=== PATIENT | male | born 1945 | race Hispanic/Latino ===

== ENCOUNTER 2022-06-03 07:42 | Inpatient (IN) | payer MEDICARE, OTHER ==
[~2022-06-03] VITALS: Ht 172.7 cm; Wt 70.3 kg
[2022-06-03] MEDS ORDERED: ASPIRIN 81 MG CHEW TAB PO ONE ×2 (08:00→11:30)
[2022-06-03] MEDS ORDERED: ENOXAPARIN INJ 80 MG/0.8 ML SYR SC SCH (08:00)
[2022-06-03] MEDS ORDERED: DIGOXIN INJ 0.25 MG/ML 2 ML AMP IV ONE ×2 (08:00→10:30)
[2022-06-03] MEDS ORDERED: SODIUM CHLORIDE FLUSH 10 ML SYR IV PRN (08:00)
[2022-06-03] MEDS ORDERED: ASPIRIN 325 MG TAB ONE (08:31)
[2022-06-03 08:36] LABS: BASOPHILS % 0.6 % (0.0-1.0); EOSINOPHILS # (AUTO) 0.1 (0.0-0.4); EOSINOPHILS % 1.7 % (0.0-6.0); HEMATOCRIT 30.3 % (38.2-49.6); HEMOGLOBIN 9.8 g/dL (14.0-18.0); LYMPHOCYTES # (AUTO) 0.9 (1.0-3.2); LYMPHOCYTES % 18.6 % (18.0-39.1); MEAN CORPUSCULAR HEMOGLOBIN 31.6 pg (28-32); MEAN CORPUSCULAR HGB CONC 32.3 g/dL (31-35); MEAN CORPUSCULAR VOLUME 97.7 fL (81-99); MONOCYTES # (AUTO) 0.5 (0.2-0.8); MONOCYTES % 9.7 % (4.4-11.3); NEUTROPHILS # (AUTO) 3.3 (2.1-6.9); PLATELET COUNT 127 x10e3/uL (140-360); RED CELL DISTRIBUTION WIDTH 15.2 % (11.7-14.4)
[2022-06-03] MEDS ORDERED: ASPIRIN 325 MG TAB PO ONE (08:45)
[2022-06-03 08:46] LABS: INR 3.92; PARTIAL THROMBOPLASTIN TIME 46.3 seconds (23.8-35.5); PROTHROMBIN TIME 38.6 seconds (11.9-14.5)
[2022-06-03 08:55] LABS: ALBUMIN 3.4 g/dL (3.5-5.0); ALBUMIN/GLOBULIN RATIO 0.8 (0.8-2.0); CALCIUM 8.9 mg/dL (8.4-10.2); CREATININE, SERUM 3.73 mg/dL (0.72-1.25)
[2022-06-03] MEDS ORDERED: ONDANSETRON HCL INJ 2MG/ML 2ML 2 MG/ML VIAL IV PRN (11:30)
[2022-06-03] MEDS ORDERED: SODIUM CHLORIDE FLUSH 10 ML SYR INJ PRN (11:30)
[2022-06-03 15:33] LABS: CREATINE KINASE MB 1.3 ng/mL (0-5.0)
[2022-06-03] MEDS ORDERED: ESIDRIX25 MG PO (15:48)
[2022-06-03] MEDS ORDERED: LIPITOR20 MG PO (15:48)
[2022-06-03] MEDS ORDERED: WARFARIN SODIUM5 MG PO (15:48)
[2022-06-03] MEDS ORDERED: AMLODIPINE BESY10 MG PO (15:48)
[2022-06-03] MEDS ORDERED: METFORMIN HCL500 MG PO (15:48)
[2022-06-03 16:41] VITALS: BP 145/106
[2022-06-03] MEDS: AMLODIPINE BESYLATE 10 MG TAB PO SCH (17:57)
[2022-06-03 20:00] VITALS: BP 145/106
[2022-06-03 20:37] VITALS: BP 118/84
[2022-06-03] MEDS: ATORVASTATIN 40 MG TAB PO SCH (20:56)
[2022-06-04] VITALS (7 sets, daily range): BP systolic 93–142; BP diastolic 67–92
[2022-06-04 00:28] LABS: CREATINE KINASE MB 1.1 ng/mL (0-5.0)
[2022-06-04 06:12] LABS: BASOPHILS % 0.4 % (0.0-1.0); EOSINOPHILS # (AUTO) 0.2 (0.0-0.4); EOSINOPHILS % 3.3 % (0.0-6.0); LYMPHOCYTES # (AUTO) 0.7 (1.0-3.2); LYMPHOCYTES % 15.3 % (18.0-39.1); MEAN CORPUSCULAR HEMOGLOBIN 31.3 pg (28-32); MEAN CORPUSCULAR VOLUME 100.7 fL (81-99); MONOCYTES # (AUTO) 0.5 (0.2-0.8); MONOCYTES % 10.4 % (4.4-11.3); NEUTROPHILS # (AUTO) 3.2 (2.1-6.9); NEUTROPHILS % 70.2 % (38.7-80.0); PLATELET COUNT 108 x10e3/uL (140-360); RED BLOOD COUNT 2.88 x10e6/uL (4.3-5.7); RED CELL DISTRIBUTION WIDTH 14.8 % (11.7-14.4)
[2022-06-04 06:55] LABS: ALBUMIN 2.9 g/dL (3.5-5.0); ALBUMIN/GLOBULIN RATIO 0.8 (0.8-2.0); ANION GAP 13.6 mmol/L (8-16); CALCIUM 8.4 mg/dL (8.4-10.2); CREATININE, SERUM 3.67 mg/dL (0.72-1.25); POTASSIUM 3.6 mmol/L (3.5-5.1)
[2022-06-04 07:45] LABS: CREATINE KINASE MB 1.1 ng/mL (0-5.0)
[2022-06-04] MEDS ORDERED: HYDROCHLOROTHIAZIDE 25 MG TAB PO SCH (09:00)
[2022-06-04] MEDS: AMLODIPINE BESYLATE 10 MG TAB PO SCH (09:39)
[2022-06-04] MEDS: ASPIRIN 81 MG ENTERIC COATED PO SCH (09:39)
[2022-06-04] MEDS: METFORMIN HCL 500 MG TAB PO SCH ×2 (09:39→17:15)
[2022-06-04 14:08] LABS: CLARITY,URINE CLEAR (CLEAR); COLOR,URINE YELLOW (YELLOW); LEUKOCYTE ESTERASE ,URINE NEGATIVE (NEGATIVE); NITRITE,URINE NEGATIVE (NEGATIVE); PROTEIN,URINE DIPSTICK NEGATIVE (NEGATIVE)
[2022-06-04 14:09] LABS: KETONES,URINE NEGATIVE (NEGATIVE); URINE UROBILINOGEN 0.2 mg/dL (0.2 - 1)
[2022-06-04 14:14] LABS: BACTERIA,URINE FEW /HPF; EPITHELIAL CELLS,URINE MANY /LPF; RBC,URINE 21-50 /HPF (0-5)
[2022-06-04 15:34] LABS: CREATININE,URINE RANDOM 70.86 mg/dL (63-166)
[2022-06-04] MEDS ORDERED: LACTATED RINGER'S 1,000 ML INJ ONE (16:45)
[2022-06-04] MEDS: METOPROLOL TARTRATE 25 MG TAB PO SCH (17:00)
[2022-06-04] MEDS: ATORVASTATIN 40 MG TAB PO SCH (21:13)
[2022-06-04 22:51] LABS: % IRON SATURATION 17 % (15-50); IRON 43 ug/dL (65-175); TOTAL IRON BINDING CAPACITY 258 ug/dL (261-478); TRANSFERRIN 184 mg/dL (174-364)
[2022-06-05] VITALS (7 sets, daily range): BP systolic 101–124; BP diastolic 75–98
[2022-06-05 06:30] LABS: ALBUMIN/GLOBULIN RATIO 0.8 (0.8-2.0); ANION GAP 15.8 mmol/L (8-16); CALCIUM 8.4 mg/dL (8.4-10.2); CREATININE, SERUM 3.73 mg/dL (0.72-1.25); POTASSIUM 3.8 mmol/L (3.5-5.1)
[2022-06-05 06:41] LABS: INR 3.05; PROTHROMBIN TIME 31.9 seconds (11.9-14.5)
[2022-06-05] MEDS ORDERED: SODIUM CHLORIDE 0.9% 100 ML ONE (07:39)
[2022-06-05] MEDS: AMLODIPINE BESYLATE 10 MG TAB PO SCH (08:43)
[2022-06-05] MEDS: METFORMIN HCL 500 MG TAB PO SCH (08:43)
[2022-06-05] MEDS: METOPROLOL TARTRATE 25 MG TAB PO SCH ×2 (08:44→16:29)
[2022-06-05] MEDS: ASPIRIN 81 MG ENTERIC COATED PO SCH (08:44)
[2022-06-05] MEDS: IRON SUCROSE 100 MG in SODIUM CHLORIDE 0.9% 100 ML IV SCH (08:45)
[2022-06-05] MEDS ORDERED: DIATRIZOATE MEGL/DIATRIZOA SOD 30 ML BTL PO ONE (11:02)
[2022-06-05] MEDS ORDERED: ONDANSETRON HCL 4 MG ORAL DISINTEGRATING TAB PO PRN (13:00)
[2022-06-05 14:03] LABS: HEMATOCRIT 30.7 % (38.2-49.6); HEMOGLOBIN 9.9 g/dL (14.0-18.0)
[2022-06-05] MEDS ORDERED: SODIUM CHLORIDE 0.9% 250ML 250 ML IV ONE (15:15)
[2022-06-05] MEDS: SODIUM BICARBONATE 650 MG TAB PO SCH ×2 (16:29→20:39)
[2022-06-05] MEDS: ATORVASTATIN 40 MG TAB PO SCH (20:39)
[2022-06-05] MEDS ORDERED: DILTIAZEM HCL 5 MG/ML 5 ML VIAL IV ONE (22:45)
[2022-06-06 05:55] LABS: BASOPHILS % 0.3 % (0.0-1.0); EOSINOPHILS % 0.5 % (0.0-6.0); HEMATOCRIT 31.9 % (38.2-49.6); HEMOGLOBIN 10.3 g/dL (14.0-18.0); LYMPHOCYTES # (AUTO) 0.7 (1.0-3.2); LYMPHOCYTES % 10.5 % (18.0-39.1); MEAN CORPUSCULAR HEMOGLOBIN 30.3 pg (28-32); MEAN CORPUSCULAR HGB CONC 32.3 g/dL (31-35); MEAN CORPUSCULAR VOLUME 93.8 fL (81-99); MONOCYTES # (AUTO) 0.6 (0.2-0.8); MONOCYTES % 8.5 % (4.4-11.3); NEUTROPHILS # (AUTO) 5.2 (2.1-6.9); NEUTROPHILS % 79.9 % (38.7-80.0); PLATELET COUNT 117 x10e3/uL (140-360); RED CELL DISTRIBUTION WIDTH 16.3 % (11.7-14.4)
[2022-06-06 06:11] LABS: INR 2.34; PROTHROMBIN TIME 26.1 seconds (11.9-14.5)
[2022-06-06 06:26] VITALS: BP 122/93
[2022-06-06 06:41] LABS: ALBUMIN 2.9 g/dL (3.5-5.0); ALBUMIN/GLOBULIN RATIO 0.8 (0.8-2.0); ANION GAP 16.3 mmol/L (8-16); CALCIUM 8.3 mg/dL (8.4-10.2); CREATININE, SERUM 3.65 mg/dL (0.72-1.25); POTASSIUM 4.3 mmol/L (3.5-5.1)
[2022-06-06 08:42] VITALS: BP 130/87
[2022-06-06] MEDS: IRON SUCROSE 100 MG in SODIUM CHLORIDE 0.9% 100 ML IV SCH (09:39)
[2022-06-06] MEDS: AMLODIPINE BESYLATE 10 MG TAB PO SCH (09:39)
[2022-06-06] MEDS: SODIUM BICARBONATE 650 MG TAB PO SCH ×3 (09:39→21:44)
[2022-06-06] MEDS: METOPROLOL TARTRATE 25 MG TAB PO SCH ×2 (09:40→21:44)
[2022-06-06] MEDS: AMIODARONE HCL 200 MG TAB PO SCH ×2 (09:43→16:06)
[2022-06-06] MEDS: ASPIRIN 81 MG ENTERIC COATED PO SCH (09:43)
[2022-06-06 11:46] VITALS: BP 102/73
[2022-06-06 15:48] VITALS: BP 119/82
[2022-06-06] MEDS: SODIUM BICARBONATE 8.4% SYRING 150 ML in DEXTROSE 5% 1,000 ML IV SCH (16:06)
[2022-06-06] MEDS ORDERED: WARFARIN SOD 2 MG TAB PO SCH (17:00)
[2022-06-06 20:00] VITALS: BP 102/77
[2022-06-06] MEDS: ATORVASTATIN 40 MG TAB PO SCH (21:44)
[2022-06-07] VITALS (8 sets, daily range): BP systolic 91–116; BP diastolic 65–80
[2022-06-07] MEDS: METOPROLOL TARTRATE 25 MG TAB PO SCH ×3 (06:18→22:37)
[2022-06-07 06:25] LABS: INR 2.08; PROTHROMBIN TIME 23.9 seconds (11.9-14.5)
[2022-06-07] MEDS: SODIUM BICARBONATE 8.4% SYRING 150 ML in DEXTROSE 5% 1,000 ML IV SCH ×2 (06:34→22:30)
[2022-06-07 06:44] LABS: ALBUMIN 2.7 g/dL (3.5-5.0); ALBUMIN/GLOBULIN RATIO 0.7 (0.8-2.0); ANION GAP 14.6 mmol/L (8-16); CALCIUM 8.4 mg/dL (8.4-10.2); CREATININE, SERUM 3.43 mg/dL (0.72-1.25); POTASSIUM 3.6 mmol/L (3.5-5.1)
[2022-06-07] MEDS: IRON SUCROSE 100 MG in SODIUM CHLORIDE 0.9% 100 ML IV SCH (08:50)
[2022-06-07] MEDS: AMLODIPINE BESYLATE 10 MG TAB PO SCH (08:50)
[2022-06-07] MEDS: ASPIRIN 81 MG ENTERIC COATED PO SCH (08:51)
[2022-06-07] MEDS: SODIUM BICARBONATE 650 MG TAB PO SCH ×3 (08:51→20:38)
[2022-06-07] MEDS: AMIODARONE HCL 200 MG TAB PO SCH ×2 (08:51→16:43)
[2022-06-07] MEDS ORDERED: HYDRALAZINE HCL 20 MG/ML VIAL IV PRN (11:15)
[2022-06-07] MEDS ORDERED: DOCUSATE SODIUM 100 MG CAP PO PRN (11:15)
[2022-06-07] MEDS ORDERED: GUAIFENESIN/DEXTROMETHORPHAN LIQD 5 ML UDC PO PRN (11:15)
[2022-06-07] MEDS ORDERED: MELATONIN 3 MG TAB PO PRN (11:15)
[2022-06-07] MEDS ORDERED: AMIODARONE HCL 200 MG TAB PO ONE (13:00)
[2022-06-07] MEDS: PANTOPRAZOLE SOD 40 MG TABEC PO SCH (16:42)
[2022-06-07] MEDS: ATORVASTATIN 40 MG TAB PO SCH (20:38)
[2022-06-08] VITALS (8 sets, daily range): BP systolic 92–109; BP diastolic 65–96
[2022-06-08] MEDS: METOPROLOL TARTRATE 25 MG TAB PO SCH ×3 (05:40→21:18)
[2022-06-08 07:25] LABS: BASOPHILS % 0.2 % (0.0-1.0); EOSINOPHILS # (AUTO) 0.2 (0.0-0.4); EOSINOPHILS % 1.6 % (0.0-6.0); LYMPHOCYTES % 7.9 % (18.0-39.1); MEAN CORPUSCULAR HEMOGLOBIN 30.5 pg (28-32); MEAN CORPUSCULAR HGB CONC 32.3 g/dL (31-35); MEAN CORPUSCULAR VOLUME 94.5 fL (81-99); MONOCYTES # (AUTO) 1.1 (0.2-0.8); MONOCYTES % 8.5 % (4.4-11.3); NEUTROPHILS # (AUTO) 10.3 (2.1-6.9); NEUTROPHILS % 81.2 % (38.7-80.0); RED BLOOD COUNT 3.28 x10e6/uL (4.3-5.7)
[2022-06-08 07:26] LABS: PLATELET COUNT 100 x10e3/uL (140-360)
[2022-06-08 07:28] LABS: INR 1.99; PROTHROMBIN TIME 23.1 seconds (11.9-14.5)
[2022-06-08 07:55] LABS: ANION GAP 12.7 mmol/L (8-16); CALCIUM 7.6 mg/dL (8.4-10.2); CREATININE, SERUM 3.26 mg/dL (0.72-1.25); POTASSIUM 3.7 mmol/L (3.5-5.1)
[2022-06-08] MEDS: ASPIRIN 81 MG ENTERIC COATED PO SCH (08:00)
[2022-06-08] MEDS: PANTOPRAZOLE SOD 40 MG TABEC PO SCH ×2 (08:00→16:31)
[2022-06-08] MEDS: MULTIVITAMINS/MINERALS TAB PO SCH (08:00)
[2022-06-08] MEDS: AMIODARONE HCL 200 MG TAB PO SCH ×2 (08:00→16:31)
[2022-06-08] MEDS: AMLODIPINE BESYLATE 10 MG TAB PO SCH (08:00)
[2022-06-08] MEDS: SODIUM BICARBONATE 650 MG TAB PO SCH (08:01)
[2022-06-08] MEDS: IRON SUCROSE 100 MG in SODIUM CHLORIDE 0.9% 100 ML IV SCH (09:49)
[2022-06-08] MEDS: SODIUM BICARBONATE 8.4% SYRING 150 ML in DEXTROSE 5% 1,000 ML IV SCH (16:31)
[2022-06-08] MEDS: ATORVASTATIN 40 MG TAB PO SCH (21:17)
[2022-06-09] VITALS (9 sets, daily range): BP systolic 94–102; BP diastolic 63–77
[2022-06-09] MEDS: METOPROLOL TARTRATE 25 MG TAB PO SCH ×3 (05:53→21:03)
[2022-06-09 06:15] LABS: BASOPHILS % 0.2 % (0.0-1.0); EOSINOPHILS # (AUTO) 0.2 (0.0-0.4); HEMATOCRIT 27.3 % (38.2-49.6); HEMOGLOBIN 9.2 g/dL (14.0-18.0); LYMPHOCYTES # (AUTO) 1.2 (1.0-3.2); LYMPHOCYTES % 11.2 % (18.0-39.1); MEAN CORPUSCULAR HEMOGLOBIN 31.1 pg (28-32); MEAN CORPUSCULAR HGB CONC 33.7 g/dL (31-35); MEAN CORPUSCULAR VOLUME 92.2 fL (81-99); MONOCYTES # (AUTO) 0.7 (0.2-0.8); MONOCYTES % 6.7 % (4.4-11.3); NEUTROPHILS # (AUTO) 8.6 (2.1-6.9); NEUTROPHILS % 79.3 % (38.7-80.0); PLATELET COUNT 102 x10e3/uL (140-360); RED BLOOD COUNT 2.96 x10e6/uL (4.3-5.7); RED CELL DISTRIBUTION WIDTH 15.4 % (11.7-14.4)
[2022-06-09 06:55] LABS: ANION GAP 15.2 mmol/L (8-16); CALCIUM 7.8 mg/dL (8.4-10.2); CREATININE, SERUM 3.7 mg/dL (0.72-1.25); POTASSIUM 3.2 mmol/L (3.5-5.1)
[2022-06-09] MEDS ORDERED: SODIUM CHLORIDE 0.9% 100 ML ONE (07:28)
[2022-06-09] MEDS: MULTIVITAMINS/MINERALS TAB PO SCH (08:10)
[2022-06-09] MEDS: PANTOPRAZOLE SOD 40 MG TABEC PO SCH ×2 (08:11→17:39)
[2022-06-09] MEDS: AMIODARONE HCL 200 MG TAB PO SCH ×2 (08:11→17:39)
[2022-06-09] MEDS: ASPIRIN 81 MG ENTERIC COATED PO SCH (08:11)
[2022-06-09] MEDS: AMLODIPINE BESYLATE 10 MG TAB PO SCH (08:14)
[2022-06-09] MEDS: SODIUM BICARBONATE 8.4% SYRING 150 ML in DEXTROSE 5% 1,000 ML IV SCH ×2 (08:14→22:41)
[2022-06-09] MEDS: IRON SUCROSE 100 MG in SODIUM CHLORIDE 0.9% 100 ML IV SCH (09:00)
[2022-06-09] MEDS ORDERED: POTASSIUM CHLORIDE 20 MEQ TAB CR PO ONE ×2 (10:00→13:00)
[2022-06-09] MEDS: ATORVASTATIN 40 MG TAB PO SCH (20:57)
[2022-06-10] VITALS (9 sets, daily range): BP systolic 94–107; BP diastolic 68–79
[2022-06-10] MEDS: METOPROLOL TARTRATE 25 MG TAB PO SCH ×3 (05:38→20:25)
[2022-06-10 07:20] LABS: INR 1.59; PROTHROMBIN TIME 19.5 seconds (11.9-14.5)
[2022-06-10 07:29] LABS: ANION GAP 13.4 mmol/L (8-16); CALCIUM 7.9 mg/dL (8.4-10.2); CREATININE, SERUM 3.47 mg/dL (0.72-1.25); POTASSIUM 3.4 mmol/L (3.5-5.1)
[2022-06-10] MEDS: PANTOPRAZOLE SOD 40 MG TABEC PO SCH ×2 (08:32→16:05)
[2022-06-10] MEDS: ASPIRIN 81 MG ENTERIC COATED PO SCH (08:32)
[2022-06-10] MEDS: AMIODARONE HCL 200 MG TAB PO SCH ×2 (08:33→16:04)
[2022-06-10] MEDS: IRON-VITAMIN-MINERAL CAPSULE PO SCH ×2 (08:33→16:04)
[2022-06-10] MEDS: MULTIVITAMINS/MINERALS TAB PO SCH (08:41)
[2022-06-10] MEDS: AMLODIPINE BESYLATE 10 MG TAB PO SCH (09:00)
[2022-06-10] MEDS: ACETAMINOPHEN 325 MG TAB PO PRN ×2 (10:24→10:38)
[2022-06-10] MEDS ORDERED: POTASSIUM CHLORIDE 20 MEQ TAB CR PO ONE (14:00)
[2022-06-10] MEDS: SODIUM BICARBONATE 8.4% SYRING 150 ML in DEXTROSE 5% 1,000 ML IV SCH (17:06)
[2022-06-10] MEDS: ATORVASTATIN 40 MG TAB PO SCH (20:28)
[2022-06-11] VITALS (9 sets, daily range): BP systolic 93–105; BP diastolic 70–79
[2022-06-11] MEDS: METOPROLOL TARTRATE 25 MG TAB PO SCH ×3 (05:09→20:26)
[2022-06-11] MEDS: AMIODARONE HCL 200 MG TAB PO SCH ×2 (08:38→16:33)
[2022-06-11] MEDS: PANTOPRAZOLE SOD 40 MG TABEC PO SCH ×2 (08:38→16:33)
[2022-06-11] MEDS: ASPIRIN 81 MG ENTERIC COATED PO SCH (08:38)
[2022-06-11] MEDS: MULTIVITAMINS/MINERALS TAB PO SCH (08:38)
[2022-06-11] MEDS: IRON-VITAMIN-MINERAL CAPSULE PO SCH ×2 (08:39→16:35)
[2022-06-11] MEDS: SODIUM BICARBONATE 8.4% SYRING 150 ML in DEXTROSE 5% 1,000 ML IV SCH (09:32)
[2022-06-11] MEDS: ATORVASTATIN 40 MG TAB PO SCH (20:26)
[2022-06-12] VITALS (7 sets, daily range): BP systolic 90–111; BP diastolic 55–77
[2022-06-12] MEDS: SODIUM BICARBONATE 8.4% SYRING 150 ML in DEXTROSE 5% 1,000 ML IV SCH ×2 (04:14→16:44)
[2022-06-12] MEDS: METOPROLOL TARTRATE 25 MG TAB PO SCH ×3 (05:06→21:54)
[2022-06-12 06:25] LABS: INR 1.36; PROTHROMBIN TIME 17.3 seconds (11.9-14.5)
[2022-06-12 06:26] LABS: PARTIAL THROMBOPLASTIN TIME 54.7 seconds (23.8-35.5)
[2022-06-12] MEDS: AMIODARONE HCL 200 MG TAB PO SCH ×2 (10:16→16:44)
[2022-06-12] MEDS: IRON-VITAMIN-MINERAL CAPSULE PO SCH ×2 (10:16→16:44)
[2022-06-12] MEDS: PANTOPRAZOLE SOD 40 MG TABEC PO SCH ×2 (10:16→16:44)
[2022-06-12] MEDS: ASPIRIN 81 MG ENTERIC COATED PO SCH (10:16)
[2022-06-12] MEDS: MULTIVITAMINS/MINERALS TAB PO SCH (10:16)
[2022-06-12] MEDS: ATORVASTATIN 40 MG TAB PO SCH (21:53)
[2022-06-13] VITALS (7 sets, daily range): BP systolic 99–123; BP diastolic 74–91
[2022-06-13] MEDS: METOPROLOL TARTRATE 25 MG TAB PO SCH ×3 (05:46→21:22)
[2022-06-13] MEDS: MULTIVITAMINS/MINERALS TAB PO SCH (10:06)
[2022-06-13] MEDS: PANTOPRAZOLE SOD 40 MG TABEC PO SCH ×2 (10:06→18:05)
[2022-06-13] MEDS: IRON-VITAMIN-MINERAL CAPSULE PO SCH ×2 (10:06→18:05)
[2022-06-13] MEDS: SODIUM BICARBONATE 8.4% SYRING 150 ML in DEXTROSE 5% 1,000 ML IV SCH (10:07)
[2022-06-13] MEDS: AMIODARONE HCL 200 MG TAB PO SCH ×2 (10:07→18:05)
[2022-06-13] MEDS: ASPIRIN 81 MG ENTERIC COATED PO SCH (10:07)
[2022-06-13 10:26] LABS: ALBUMIN 2.4 g/dL (3.5-5.0); ALBUMIN/GLOBULIN RATIO 0.5 (0.8-2.0); CALCIUM 8.4 mg/dL (8.4-10.2); CREATININE, SERUM 2.91 mg/dL (0.72-1.25)
[2022-06-13] MEDS ORDERED: LIDOCAINE HCL 2% LOCAL INJ 5 ML SDV VIAL INJ ONE (12:14)
[2022-06-13] MEDS ORDERED: PROPOFOL IV EMULSION 10 MG/ML 20 ML VIAL ONE (12:14)
[2022-06-13] MEDS ORDERED: FENTANYL CITRATE/PF 100MCG/2 ML INJ ONE (13:21)
[2022-06-13] MEDS: ATORVASTATIN 40 MG TAB PO SCH (21:22)
[2022-06-14] MEDS: SODIUM BICARBONATE 8.4% SYRING 150 ML in DEXTROSE 5% 1,000 ML IV SCH (03:29)
[2022-06-14 04:00] VITALS: BP 113/88
[2022-06-14] MEDS: METOPROLOL TARTRATE 25 MG TAB PO SCH (06:01)
[2022-06-14 06:18] LABS: BASOPHILS # (AUTO) 0.1 (0.0-0.1); BASOPHILS % 0.8 % (0.0-1.0); EOSINOPHILS # (AUTO) 0.1 (0.0-0.4); EOSINOPHILS % 1.8 % (0.0-6.0); HEMATOCRIT 34.3 % (38.2-49.6); HEMOGLOBIN 11.1 g/dL (14.0-18.0); LYMPHOCYTES # (AUTO) 1.2 (1.0-3.2); LYMPHOCYTES % 14.6 % (18.0-39.1); MEAN CORPUSCULAR HEMOGLOBIN 31.3 pg (28-32); MEAN CORPUSCULAR HGB CONC 32.4 g/dL (31-35); MEAN CORPUSCULAR VOLUME 96.6 fL (81-99); MONOCYTES # (AUTO) 0.6 (0.2-0.8); MONOCYTES % 7.6 % (4.4-11.3); NEUTROPHILS # (AUTO) 5.9 (2.1-6.9); NEUTROPHILS % 74.8 % (38.7-80.0); PLATELET COUNT 186 x10e3/uL (140-360); RED BLOOD COUNT 3.55 x10e6/uL (4.3-5.7); RED CELL DISTRIBUTION WIDTH 14.6 % (11.7-14.4)
[2022-06-14 06:42] LABS: ANION GAP 15.5 mmol/L (8-16); CALCIUM 8.7 mg/dL (8.4-10.2); CREATININE, SERUM 3.01 mg/dL (0.72-1.25); MAGNESIUM 1.7 MG/DL (1.3-2.1); POTASSIUM 3.5 mmol/L (3.5-5.1)
[2022-06-14 08:32] VITALS: BP 114/83
[2022-06-14 08:45] VITALS: BP 114/83
[2022-06-14] MEDS: IRON-VITAMIN-MINERAL CAPSULE PO SCH (08:53)
[2022-06-14] MEDS: AMIODARONE HCL 200 MG TAB PO SCH (08:53)
[2022-06-14] MEDS: MULTIVITAMINS/MINERALS TAB PO SCH (08:53)
[2022-06-14] MEDS: PANTOPRAZOLE SOD 40 MG TABEC PO SCH (08:53)
[2022-06-14] MEDS: ASPIRIN 81 MG ENTERIC COATED PO SCH (08:53)
[2022-06-14 11:54] VITALS: BP 118/83
[2022-06-14] MEDS ORDERED: PROTONIX40 MG/ML PO (12:33)
[2022-06-14] MEDS ORDERED: ASPIRIN EC81 MG PO (12:33)
[2022-06-14] MEDS ORDERED: AMIODARONE HCL200 MG PO (12:33)
[2022-06-14] MEDS ORDERED: FEROCON CAPSUL1 EACH PO (12:33)
[2022-06-14] MEDS ORDERED: TOPROL XL50 MG PO (12:33)
[2022-06-14] MEDS ORDERED: DOCUSATE SODIU100 MG PO (12:34)
== END 2022-06-14 15:35 | disposition home or self-care (01) | DRG 682 ==
LOC: ER 07:48 → ERHOLD 11:29 → MED/SURG2 13:40
PROVIDERS: ADMIT Internal Medicine; ATTEND Internal Medicine
PROC: 0DB78ZX Excision of Stomach, Pylorus, Via Natural or Artificial Opening Endoscopic, Diagnostic (ICD-10-PCS; 2022-06-03)
PROC: 0DB98ZX Excision of Duodenum, Via Natural or Artificial Opening Endoscopic, Diagnostic (ICD-10-PCS; 2022-06-03)
PROC: 30233N1 Transfusion of Nonautologous Red Blood Cells into Peripheral Vein, Percutaneous Approach (ICD-10-PCS; principal; 2022-06-05)
PROC: 0T7B7ZZ Dilation of Bladder, Via Natural or Artificial Opening (ICD-10-PCS; 2022-06-05)
DX: N17.9 Acute kidney failure, unspecified (principal); J96.01 Acute respiratory failure with hypoxia; E87.20 Acidosis, unspecified; N39.0 Urinary tract infection, site not specified; I12.9 Hypertensive chronic kidney disease with stage 1 through stage 4 chronic kidney disease, or unspecified chronic kidney disease; N13.1 Hydronephrosis with ureteral stricture, not elsewhere classified; I48.91 Unspecified atrial fibrillation; I25.2 Old myocardial infarction; I95.9 Hypotension, unspecified; R91.1 Solitary pulmonary nodule; E78.5 Hyperlipidemia, unspecified; I25.10 Atherosclerotic heart disease of native coronary artery without angina pectoris; E11.22 Type 2 diabetes mellitus with diabetic chronic kidney disease; R33.9 Retention of urine, unspecified; N40.1 Benign prostatic hyperplasia with lower urinary tract symptoms; R31.0 Gross hematuria; N32.9 Bladder disorder, unspecified; D72.819 Decreased white blood cell count, unspecified; D63.1 Anemia in chronic kidney disease; D69.6 Thrombocytopenia, unspecified; N28.1 Cyst of kidney, acquired; K29.70 Gastritis, unspecified, without bleeding; K20.90 Esophagitis, unspecified without bleeding; N18.30 Chronic kidney disease, stage 3 unspecified; D50.0 Iron deficiency anemia secondary to blood loss (chronic); I71.21 Aneurysm of the ascending aorta, without rupture; Z95.1 Presence of aortocoronary bypass graft; Z79.01 Long term (current) use of anticoagulants; Z79.84 Long term (current) use of oral hypoglycemic drugs; Z79.82 Long term (current) use of aspirin; Z99.81 Dependence on supplemental oxygen; Z20.822 Contact with and (suspected) exposure to COVID-19
CPT/HCPCS: 0223U; 36415; 43239; 71045; 71250; 74176; 76770; 80048; 80053; 81001; 82550; 82553; 82570; 82607; 82746; 82948; 83540; 83735; 83880; 84300; 84466; 84484; 85014; 85018; 85025; 85045; 85610; 85730; 86850; 86900; 86920; 88304; 88305; 88312; 88342; 93005; 93306; 96361; 99284; J0696; J1160; J1756; J2001; J7050; J7070; P9016; Q0162; Q9963